=== PATIENT | male | born 1965 | race African-American/Black ===

== ENCOUNTER 2017-08-14 14:40 | Emergency (ER) | payer MEDICAID ==
[~2017-08-14] VITALS: Ht 185.4 cm; Wt 101.1 kg
[~2017-08-14 14:40] MED LIST: AZIT250T PO
[2017-08-14 14:41] VITALS: BP 131/81
[2017-08-14] MEDS ORDERED: KETOROLAC 30 MG/1 ML ONE (14:54)
[2017-08-14] MEDS ORDERED: KETOROLAC 30 MG/1 ML IM ONE (15:00)
== END 2017-08-14 16:47 | disposition home or self-care (01) ==
LOC: ED 16:15
DX: S63.501A Unspecified sprain of right wrist, initial encounter (principal); X58.XXXA Exposure to other specified factors, initial encounter; Y93.89 Activity, other specified; Y99.8 Other external cause status; Y92.89 Other specified places as the place of occurrence of the external cause
CPT/HCPCS: 29125; 73110; 96372; 99284; J1885

== ENCOUNTER 2017-10-04 19:01 | Emergency (ER) | payer MEDICAID ==
[~2017-10-04] VITALS: Ht 185.4 cm; Wt 101.2 kg
[2017-10-04] MEDS ORDERED: SODIUM CHLORIDE 0.9% 1,000 ML IV ONE (19:18)
[2017-10-04] MEDS ORDERED: MAALOX/HYOSCYAMINE/LIDOCAINE 45 ML BTL ONE (19:28)
[2017-10-04] MEDS ORDERED: ONDANSETRON 2MG/ML, 2ML ONE (19:28)
[2017-10-04] MEDS ORDERED: morphine SULFATE 10 MG/ML, 1ML ONE ×2 (19:28→20:18)
[2017-10-04] MEDS ORDERED: FAMOTIDINE 20 MG/2 ML ONE (19:28)
[2017-10-04] MEDS ORDERED: FAMOTIDINE 20 MG/2 ML IVP ONE (19:30)
[2017-10-04] MEDS ORDERED: SODIUM CHLORIDE FLUSH 10ML SYR IVF ONE (19:30)
[2017-10-04] MEDS ORDERED: ONDANSETRON 2MG/ML, 2ML IVPush ONE (19:30)
[2017-10-04] MEDS ORDERED: MAALOX/HYOSCYAMINE/LIDOCAINE 45 ML BTL PO ONE (19:30)
[2017-10-04 19:39] LABS: HEMATOCRIT 47.5 % (39.2-51.8); HEMOGLOBIN 16.2 g/dL (13.7-18.0)
[2017-10-04] MEDS: MORPHINE SULFATE 4 MG/ML, 1ML IVPush PRN ×2 (19:45→20:20)
[2017-10-04 19:50] LABS: ASPARTATE AMINO TRANSFERASE 47 U/L (15-37); BLOOD UREA NITROGEN 18 mg/dL (7-18)
[2017-10-04] MEDS ORDERED: OMNIPAQUE 350 MG/ML, 100ML BOTTLE ONE (20:17)
[2017-10-04 20:35] VITALS: BP 132/86
== END 2017-10-04 21:07 | disposition home or self-care (01) ==
LOC: ED 19:50
DX: K29.00 Acute gastritis without bleeding (principal)
CPT/HCPCS: 36415; 74177; 80053; 81003; 83690; 85025; 96361; 96374; 96375; 96376; 99285; J2405; J7030; Q9967; S0028